=== PATIENT | male | born 1940 ===

== ENCOUNTER 2018-11-14 10:46 | Outpatient (CLI) | payer MEDICARE | END 2018-11-14 10:47 | disposition home or self-care (01) | LOC: C.LAB 10:46 | DX: I10 Essential (primary) hypertension (principal); E78.2 Mixed hyperlipidemia; N40.1 Benign prostatic hyperplasia with lower urinary tract symptoms ==

== ENCOUNTER 2019-01-30 08:28 | Outpatient (CLI) | payer MEDICARE | END 2019-01-30 08:29 | disposition home or self-care (01) | LOC: C.VASC 08:28 | DX: R60.0 Localized edema (principal); R26.2 Difficulty in walking, not elsewhere classified ==